=== PATIENT | female | born 1960 | race Caucasian/White ===

== ENCOUNTER 2022-01-21 14:35 | Observation (INO) ==
--- NOTE | 2022-01-21 14:47 | Emergency Department Note ---
Impression & Plan Chest pain, Shortness of breath, Pericardial effusion ED Provider Note CHIEF COMPLAINT: Chest pain HISTORY OF PRESENT ILLNESS: Verito Mcadams is a 61 year old female with history of hypothyroidism who presents to the Emergency Department for evaluation of intermittent dull, aching, left sided chest pains x 1 month which were exacerbated this morning and have been persistent since that time. She also associates intermittent radiation of pain down her left arm and into her jaw as well as shortness of breath and dyspnea which occurs when she is having the chest pain at times, but none at this time. Currently, she rates her discomfort as a 2/10 which does become worse with exertion. Most notedly, the patient's states that when they went for a hike last week, the patient had to stop several times as she was experiencing the chest pain and shortness of breath. She states that she could not keep up like she would normally be able to because of these symptoms. She also felt extremely tired afterward, which is not normal for her. The patient denies experiencing symptoms such as this in the past. She does not note any personal history of cardiac disease but states that both her mother and father have cardiac history. The patient did visit [facility] for her symptoms today, but was then referred to the ED for further evaluation. The patient does state that she has felt a bit light headed when standing up at times but denies syncope. She otherwise denies recent fevers/chills, cough, abdominal pain, nausea, vomiting, diarrhea or urinary symptoms. She is vaccinated for COVID-19. She does not smoke. REVIEW OF SYSTEMS: 10 systems were reviewed and were negative unless otherwise stated in HPI as above PHYSICAL EXAM: VITALS: Vitals are noted on the nurse's note and reviewed by myself. Hypertensive, additional vital signs stable General: Resting in bed, no acute distress HEENT: Normocephalic, PERRL, EOMI, mucous membranes moist, oropharynx clear Neck: Supple, non-tender Resp: Good inspiratory effort on room air, lung sounds clear bilaterally CV: Regular rate and rhythm, Normal S1-S2 on auscultation, no murmurs, gallops or rubs Back: No CVA tenderness Abd: Soft, non-distended, non-tender MSK: Moving all extremities without apparent pain or difficulty Integumentary: Warm, dry, no appreciable rash Neuro: Awake, alert and oriented x 3, interacting and answering questions appropriately Differential diagnosis includes cardiac ischemia, aortic dissection, pulmonary embolism, pneumothorax, pneumonia, pericarditis, myocarditis, esophageal rupture, GERD, cholecystitis, pancreatitis, musculoskeletal, as well as other pathologies. EMERGENCY DEPARTMENT COURSE: Physical exam and history were performed. Nursing triage notes, EMR, and medication list were personally reviewed. Patient appears to have intermittent dull, aching, left-sided chest pain x1 m onth which were exacerbated this morning and have been persistent since that time. She also associates intermittent radiation of pain down her left arm and into her jaw as well as shortness of breath and dyspnea which occurs when she is having the chest pain at times, but none at this time. Symptoms are worse with exertion. Additional history as described above. No significant findings on exam as above. The patient was offered medication but declined at this time. Continuous monitoring analyst: Order was placed for continuous monitoring analyst. Patient was placed on the monitoring analyst. Patient was noted to be in normal sinus rhythm at an initial rate of 73 bpm. EKG was obtained and reviewed by myself. This did show normal sinus rhythm at 73 bpm. No ectopy or concern for acute ischemic change. No previous studies for comparison. IV access was established. Labs were obtained and reviewed by myself as below. Of note, no concern for leukocytosis with a WBC of 5.87. No concern for anemia with hemoglobin 14.1. Electrolytes WNL. Renal indices stable. LFTs nondiagnostic. Lipase not elevated at 24. Troponin not elevated at <0.03. Her D-dimer was elevated at 920. Upon reevaluation, the patient was doing well. I did discuss the results of the elevated D-dimer. She did agree to undergo CT angiogram chest to assess for possible PE. CT angiogram chest was obtained and reviewed by radiologist and myself as below and reviewed by myself. Imaging was negative for PE. It did show mild bilateral bronchial wall thickening and mild associated bibasilar predominant atelectasis. Also trace pericardial effusion. I updated the patient on the additional results as above. Given her concerning history and lack of previous cardiac work-up with a heart score of 4, I do feel that she would benefit from continued monitoring and work-up for cardiac rule out. I did contact Dr. Pardo of the [facility] hospitalist group and he agreed to evaluate the patient for ongoing management. The patient verbalized her understanding and agreement with the treatment plan as above. The chart was completed utilizing [employer] Voice Recognition Software. Grammatical errors, random word insertions, pronoun errors, and incomplete sentences are an occasional consequence of this system due to software limitations, ambient noise, and hardware issues. Any formal questions or c oncerns about the content, text, or information contained within the body of this dictation should be directly addressed to the provider for clarification. Past Med/Surg History Medical History Depression Hypothyroidism Surgical History History of back surgery Family History (Updated 01/21/22 @ 18:24 by Francesco Pardo MD) Father Coronary heart disease Social History Smoking Status: Never smoker Preferred Language: Italian Feels Safe at Home: Yes Allergies Allergies Allergy/AdvReac Type Severity Reaction Status Date / Time Sulfa (Sulfonamide AdvReac Severe Gastrointestinal Verified 01/21/22 17:11 Antibiotics) Upset Home Meds Home Medications Medication Instructions Recorded Confirmed levothyroxine 75 mcg tablet 75 mcg PO DAILYBB 01/21/22 01/21/22 sertraline 100 mg tablet 100 mg PO QAM 01/21/22 01/21/22 Results & Data (ED) Vital Signs Vital Signs - 24 hr 01/21/22 14:37 01/21/22 14:53 01/21/22 16:50 Temperature 36.8 C Temperature Source Temporal Artery Scan Pulse Rate 73 Pulse Rate [Apical] 77 77 Respiratory Rate 18 17 20 Blood Pressure 152/91 H Blood Pressure [Right Arm] 171/93 H Blood Pressure Mean 111 Blood Pressure Mean [Right Arm] 119 Pulse Oximetry 95 97 97 Oxygen Delivery Method Room Air Room Air Room Air Sepsis Recent Fever Within 48 Hours No Sepsis New/Unexplained Change in Mental Status No Sepsis Action Taken by Nursing No Action Required Laboratory Data Result diagrams: 01/21/22 15:05 01/21/22 15:05 Lab Results 01/21/22 01/21/22 01/21/22 Range/Units 15:05 15:05 15:05 WBC 5.87 (4.8-10.8) K/uL RBC 4.72 (4.2-5.4) M/uL Hgb 14.1 (12.0-16.0) g/dL Hct 42.7 (37-47) % MCV 90.5 (80-100) fL MCH 29.9 (25-34) pg MCHC 33.0 (32-36) g/dL RDW Std Deviation 47.6 H (36.4-46.3) fL RDW Coeff of Sujata 14.3 (11.5-14.5) % Plt Count 259 (130-400) K/uL MPV 10.0 (7.4-10.4) fL Immature Gran % (Auto) 0.2 % Neut % (Auto) 58.6 % Lymph % (Auto) 30.8 % [place] % (Auto) 7.3 % Eos % (Auto) 2.6 % Baso % (Auto) 0.5 % Neut # (Auto) 3.44 (1.4-6.5) K/uL Lymph # (Auto) 1.81 (1.2-3.4) K/uL [place] # (Auto) 0.43 (0.11-0.59) K/uL Eos # (Auto) 0.15 (0-0.5) K/uL Baso # (Auto) 0.03 (0-0.2) K/uL Immature Gran # (Auto) 0.01 (0.00-0.02) K/uL PT 10.0 (9.0-12.0) Seconds INR 0.9 (0.9-1.1) APTT 23.7 (21.0-31.0) Seconds PTT Ratio 0.9 D-Dimer 920 H* (0-500) ug/L FEU Sodium 139 (136-145) mmol/L Potassium 4.0 (3.5-5.1) mmol/L Chloride 106 (98-107) mmol/L Carbon Dioxide 24 (21-32) mmol/L Anion Gap 9 (3-11) BUN 18 (6-23) mg/dl Creatinine 0.65 (0.6-1.2) mg/dl Est Cr Clr Drug Dosing 97.5 ml/min Est GFR ( Amer) 111.8 ml/min Est GFR (Non-Af Amer) 96.5 ml/min BUN/Creatinine Ratio 27.7 H (10-20) Glucose 102 H (70-99(Fasting)) mg/dl Calcium 9.8 (8.5-10.1) mg/dl Total Bilirubin 0.3 (0.2-1.0) mg/dl AST 16 (13-39) U/L ALT 18 (7-52) U/L Alkaline Phosphatase 82 (34-104) U/L Troponin I < 0.03 (0-0.04) ng/ml Total Protein 7.3 (6.0-8.3) gm/dl Albumin 4.3 (3.4-5.0) gm/dl Globulin 3.0 (2.5-4.0) gm/dl Albumin/Globulin Ratio 1.4 (0.9-2) Lipase 24 (11-82) U/L SARS-CoV-2, RNA, NAAT (NEGATIVE) 01/21/22 Range/Units 17:00 WBC (4.8-10.8) K/uL RBC (4.2-5.4) M/uL Hgb (12.0-16.0) g/dL Hct (37-47) % MCV (80-100) fL MCH (25-34) pg MCHC (32-36) g/dL RDW Std Deviation (36.4-46.3) fL RDW Coeff of Sujata (11.5-14.5) % Plt Count (130-400) K/uL MPV (7.4-10.4) fL Immature Gran % (Auto) % Neut % (Auto) % Lymph % (Auto) % [place] % (Auto) % Eos % (Auto) % Baso % (Auto) % Neut # (Auto) (1.4-6.5) K/uL Lymph # (Auto) (1.2-3.4) K/uL [place] # (Auto) (0.11-0.59) K/uL Eos # (Auto) (0-0.5) K/uL Baso # (Auto) (0-0.2) K/uL Immature Gran # (Auto) (0.00-0.02) K/uL PT (9.0-12.0) Seconds INR (0.9-1.1) APTT (21.0-31.0) Seconds PTT Ratio D-Dimer (0-500) ug/L FEU Sodium (136-145) mmol/L Potassium (3.5-5.1) mmol/L Chloride (98-107) mmol/L Carbon Dioxide (21-32) mmol/L Anion Gap (3-11) BUN (6-23) mg/dl Creatinine (0.6-1.2) mg/dl Est Cr Clr Drug Dosing ml/min Est GFR ( Amer) ml/min Est GFR (Non-Af Amer) ml/min BUN/Creatinine Ratio (10-20) Glucose (70-99(Fasting)) mg/dl Calcium (8.5-10.1) mg/dl Total Bilirubin (0.2-1.0) mg/dl AST (13-39) U/L ALT (7-52) U/L Alkaline Phosphatase (34-104) U/L Troponin I (0-0.04) ng/ml Total Protein (6.0-8.3) gm/dl Albumin (3.4-5.0) gm/dl Globulin (2.5-4.0) gm/dl Albumin/Globulin Ratio (0.9-2) Lipase (11-82) U/L SARS-CoV-2, RNA, NAAT NEGATIVE (NEGATIVE) Administered Medications Discontinued Medications Ioversol (Optiray 320 125ml) 121 ml IV ONCE ONE Stop: 01/21/22 16:16 Last Admin: 01/21/22 16:15 Dose: 121 ml Documented by: [id number] Imaging Data Radiologist's Impression: Chest X-Ray 01/21/22 14:47 XR chest 1V portable CLINICAL HISTORY: Atypical chest pain. Shortness of breath. COMPARISON STUDY: No previous studies for comparison. FINDINGS: Patient is mildly rotated. Lung volumes are normal. Lungs are clear. There is no pneumothorax or pleural effusion. Cardiac size is normal. Mediastinal contours are normal. There is no evidence for pulmonary edema. IMPRESSION: No acute cardiopulmonary findings. ACT 112: Negative or not required by law. Electronically signed by: Arvin An M.D. 01/21/2022 3:32 PM Chest CTA 01/21/22 15:46 CT angio chest PE protocol CT DOSE: 567.31 mGy.cm HISTORY: 61 years-old Female with PE. Acute shortness breath with left-sided chest pain TECHNIQUE: Multiple CTA images of the chest were obtained after the intravenous administration of 121 ml Optiray. Coronal and sagittal MIPS were obtained from the axial data set and were submitted for review. All measurements were obtained according to NASCET criteria. A dose lowering technique was utilized adhering to the principles of ALARA. COMPARISON: Chest radiograph of same day FINDINGS: CTA: Trace pericardial effusion. The heart is normal in size. There is no thoracic aortic aneurysm or dissection. There is patency of the imaged great vessels. Unremarkable pulmonary artery. No filling defects identified to suggest thromboembolic disease. CT CHEST: No thyroid nodule or pathologically enlarged lymph nodes. No pneumothorax, pleural effusion or overt pulmonary edema. Mild bibasilar predominant bilateral groundglass densities with bronchial wall thickening. The central airways are patent. Hepatic steatosis with suggested hepatomegaly. Unremarkable soft tissues. No acute fracture. Degenerative changes of the spine. IMPRESSION: 1. No pulmonary emboli. 2. Mild bilateral bronchial wall thickening suggestive of bronchitis or reactive airway disease. Mild associated bibasilar predominant atelectasis. 3. Trace pericardial effusion. 4. Hepatic steatosis. ACT 112: Negative or not required by law. The above report was generated using voice recognition software. It may contain grammatical, syntax or spelling errors. Electronically signed by: Ra Guido M.D. 01/21/2022 4:33 PM Discharge Plan Visit Data Chief Complaint: Chest Pain Stated Complaint: [facility] REFERRED, CHEST PAIN, SOB ED Provider: Willy Bansal ED Midlevel Provider: Aylin Harden Discharge Problem: Chest pain, Shortness of breath, Pericardial effusion Patient Disposition: Admitted As Inpatient Discharge Instructions Interventions: ED Discharge Assessment Last Done: 01/21/22 18:21
[2022-01-21 15:24] LABS: Basophils # (auto) 0.03 K/uL (0-0.2); Basophils % (auto) 0.5 %; Eosinophils # (auto) 0.15 K/uL (0-0.5); Eosinophils % (auto) 2.6 %; Hematocrit (blood only) 42.7 % (37-47); Hemoglobin 14.1 g/dL (12.0-16.0); Immature Granulocytes # (auto) 0.01 K/uL (0.00-0.02); Immature Granulocytes % (auto) 0.2 %; Lymphocytes # (auto) 1.81 K/uL (1.2-3.4); Lymphocytes % (auto) 30.8 %; Mean Corpuscular Hemoglobin 29.9 pg (25-34); Mean Corpuscular Volume 90.5 fL (80-100); Monocytes # (auto) 0.43 K/uL (0.11-0.59); Monocytes % (auto) 7.3 %; Neutrophils # (auto) 3.44 K/uL (1.4-6.5); Neutrophils % (auto) 58.6 %; Platelet Count 259 K/uL (130-400); RDW Coefficient of Variation 14.3 % (11.5-14.5); RDW Standard Deviation 47.6 fL (36.4-46.3); Red Blood Count 4.72 M/uL (4.2-5.4); White Blood Count 5.87 K/uL (4.8-10.8)
--- NOTE | 2022-01-21 15:34 | XRay Report ---
XR chest 1V portable CLINICAL HISTORY: Atypical chest pain. Shortness of breath. COMPARISON STUDY: No previous studies for comparison. FINDINGS: Patient is mildly rotated. Lung volumes are normal. Lungs are clear. There is no pneumothor ax or pleural effusion. Cardiac size is normal. Mediastinal contours are normal. There is no evidence for pulmonary edema. IMPRESSION: No acute cardiopulmonary findings. ACT 112: Negative or not required by law. Electronically signed by: Arvin An M.D. 01/21/2022 3:32 PM
[2022-01-21 15:43] LABS: INR 0.9 (0.9-1.1); Partial Thromboplastin Ratio 0.9; Partial Thromboplastin Time 23.7 Seconds (21.0-31.0)
[2022-01-21 15:44] LABS: D Dimer 920 ug/L FEU (0-500)
[2022-01-21 15:45] LABS: Troponin I < 0.03 ng/ml (0-0.04)
[2022-01-21 15:56] LABS: Alanine Aminotransferase 18 U/L (7-52); Albumin Globulin Ratio 1.4 (0.9-2); Albumin Level 4.3 gm/dl (3.4-5.0); Alkaline Phosphatase 82 U/L (34-104); Anion Gap 9 (3-11); Aspartate Aminotransferase 16 U/L (13-39); BUN Creatinine Ratio 27.7 (10-20); Bilirubin,Total 0.3 mg/dl (0.2-1.0); Blood Urea Nitrogen 18 mg/dl (6-23); Calcium 9.8 mg/dl (8.5-10.1); Carbon Dioxide 24 mmol/L (21-32); Chloride 106 mmol/L (98-107); Creatinine Clr Calc Pharmacy 97.5 ml/min; Est GFR (African American) 111.8 ml/min; Est GFR (Non-African American) 96.5 ml/min; Glucose 102 mg/dl (70-99(Fasting)); Lipase 24 U/L (11-82); Sodium 139 mmol/L (136-145); Total Protein 7.3 gm/dl (6.0-8.3)
[2022-01-21] MEDS ORDERED: OPTIRAY 320 125ml IV ONE (16:15)
--- NOTE | 2022-01-21 16:35 | CT Scan Report ---
CT angio chest PE protocol CT DOSE: 567.31 mGy.cm HISTORY: 61 years-old Female with PE. Acute shortness breath with left-sided chest pain TECHNIQUE: Multiple CTA images of the chest were obtained after the intravenous administration of 121 ml Optiray. Coronal and sagittal MIPS were obtained from the axial data set and were submitted for review. All measurements were obtained according to NASCET criteria. A dose lowering technique was u tilized adhering to the principles of ALARA. COMPARISON: Chest radiograph of same day FINDINGS: CTA: Trace pericardial effusion. The heart is normal in size. There is no thoracic aortic aneurysm or diss ection. There is patency of the imaged great vessels. Unremarkable pulmonary artery. No filling defec ts identified to suggest thromboembolic disease. CT CHEST: No thyroid nodule or pathologically enlarged lymph nodes. No pneumothorax, pleural effusion or overt pulmonary edema. Mild bibasilar predominant bilateral groundglass densities with bronchial wall thick ening. The central airways are patent. Hepatic steatosis with suggested hepatomegaly. Unremarkable soft tissues. No acute fracture. Degenera tive changes of the spine. IMPRESSION: 1. No pulmonary emboli. 2. Mild bilateral bronchial wall thickening suggestive of bronchitis or reactive airway disease. Mild associated bibasilar predominant atelectasis. 3. Trace pericardial effusion. 4. Hepatic steatosis. ACT 112: Negative or not required by law. The above report was generated using voice recognition software. It may contain grammatical, syntax o r spelling errors. Electronically signed by: Ra Guido M.D. 01/21/2022 4:33 PM
--- NOTE | 2022-01-21 17:26 | History & Physical Report ---
Date of Service January 21, 2022 Assessment & Plan (1) Chest pain: Plan: Patient sprint this probability is low based upon her negative EKG negative troponin however his symptoms sound convincing. Patient will have serial troponins and a resting echocardiogram. Patient be placed on telemetry monitoring she will be started on the baby aspirin. Lipid panel will be checked in the morning especially with her comment of steatosis seen on CT angiography (2) Depression: Plan: Patient be continued on sertraline 100 (3) Hypothyroidism: Plan: Patient appears clinically euthyroid Synthroid 75 will be continued a TSH will be added Plan: DVT preventions early ambulation Patient is a full code History of Present Illness Primary Care Provider: Freya Saleh Patient presents with a long chest discomfort has been intermittently present for 1 month but worsened on the day of presentation. She may have had some radiation in her left arm and into her jaw as well as shortness of breath. When the pain is there she feels slightly dyspneic. She noticed decreased exertional ability today when she was trying to hike and became extremely fatigued afterwards may have a positive family history of cardiac disease in her father. In the ER the patient had an EKG which was normal a troponin which was negative a chest x-ray which was unremarkable an elevated D-dimer and subsequent CT angiogram of the chest without pulmonary embolism but may be some bronchial thickening and a trace pericardial effusion. She is currently vaccinated for Covid Allergies Allergy/AdvReac Type Severity Reaction Status Date / Time Sulfa (Sulfonamide AdvReac Severe Gastrointestinal Verified 01/21/22 17:11 Antibiotics) Upset Home Medications Medication Instructions Recorded Confirmed Type levothyroxine 75 mcg tablet 75 mcg PO DAILYBB 01/21/22 01/21/22 History sertraline 100 mg tablet 100 mg PO QAM 01/21/22 01/21/22 History Past Med/Surg History Medical History (Updated 01/21/22 @ 17:22 by Francesco Pardo MD) Hypothyroidism Family History (Updated 01/21/22 @ 18:24 by Francesco Pardo MD) Father Coronary heart disease Social History Smoking Status: Never smoker Preferred Language: Faroese Feels Safe at Home: Yes Review of Systems Review of Systems: Mild distress and fatigue no headache, no visual changes no speech or swallowing issues exertional chest pain, not pressure or palpitations exertional shortness of breath, no cough or wheezes no abdominal pain, nausea or vomiting, diarrhea or constipation no dysuria, hematuria or frequency no focal joint pain or swelling, some left shoulder swelling no back pain, CVA tenderness or radicular pain no bruising, bleeding or rashes no focal signs of weakness or numbness or altered sensation no complaints of anxiety or depression.. Physical Exam Physical Exam: The patient appeared well nourished and normally developed. Vital signs as documented. Head exam is normocephalic atraumatic Neck is without JVD, thyromegaly, or carotid bruits. Lungs are clear to auscultation, no focal loss of breath sounds Cardiac exam, Rhythm is regular.. No murmurs, rubs or gallops. Abdominal exam reveals normal bowel sounds, soft non tender, no masses Extremities are nonedematous and both pedal pulses are present Neurologic exam is alert and oriented, no focal loss of strength or sensation Skin is without bruises or rashes Psychologically is without concerns for anxiety or depression.. Results & Data Results & Data ([facility]) Vital Signs (Past 12 Hours) Vital Signs Temp Pulse Pulse Resp BP BP Pulse Ox 01/21/22 16:50 77 20 97 01/21/22 14:53 77 17 171/93 H 97 01/21/22 14:37 98.2 F 73 18 152/91 H 95 Diagnostic Findings Chest X-Ray 01/21/22 14:47 XR chest 1V portable FINDINGS: Patient is mildly rotated. Lung volumes are normal. Lungs are clear. There is no pneumothorax or pleural effusion. Cardiac size is normal. Mediastinal contours are normal. There is no evidence for pulmonary edema. IMPRESSION: No acute cardiopulmonary findings. Chest CTA 01/21/22 15:46 CT angio chest PE protocol CTA: Trace pericardial effusion. The heart is normal in size. There is no thoracic a ortic aneurysm or dissection. There is patency of the imaged great vessels. Unremarkable pulmonary artery. No filling defects identified to suggest thromboembolic disease. CT CHEST: No thyroid nodule or pathologically enlarged lymph nodes. No pneumothorax, pleural effusion or overt pulmonary edema. Mild bibasilar predominant bilateral groundglass densities with bronchial wall thickening. The central airways are patent. Hepatic steatosis with suggested hepatomegaly. Unremarkable soft tissues. No acute fracture. Degenerative changes of the spine. IMPRESSION: 1. No pulmonary emboli. 2. Mild bilateral bronchial wall thickening suggestive of bronchitis or reactive airway disease. Mild associated bibasilar predominant atelectasis. 3. Trace pericardial effusion. 4. Hepatic steatosis. Troponin negative in the ER ECG Additional Comments: EKG shows normal sinus rhythm without any acute ST or T wave abnormalities PG Care Time/CCT Total # of Minutes Spent Total Time Spent with Patient: Total time spent is greater than 50% in coordination of care (as documented) at patient's floor/unit and/or counseling patient: Coding Level of Care Code INT OBSERVATION CARE 50M LVL 2 Diagnoses Depression F32.A Hypothyroidism E03.9 Chest pain R07.9
[2022-01-21] MEDS ORDERED: ALUMINUM/MAGNESIUM SUSP 30 ML UDC PO PRN (18:38)
[2022-01-21] MEDS ORDERED: NITROGLYCERIN SL 0.4 MG/TAB TAB SL PRN (18:38)
[2022-01-21] MEDS ORDERED: ONDANSETRON INJ 2 MG/ML 2 ML VIAL IV PRN (18:38)
[2022-01-21] MEDS ORDERED: MoRPHine SULFATE 2 MG/ML CARP IV PRN (18:38)
[2022-01-21] MEDS ORDERED: FLUARIX QUADRIVALENT 0.5 ML SYR IM ONE (23:17)
[2022-01-22] MEDS: ACETAMINOPHEN 325 MG TAB PO PRN ×3 (01:06→13:27)
[2022-01-22 05:53] LABS: Hematocrit (blood only) 40.6 % (37-47); Hemoglobin 13.6 g/dL (12.0-16.0); Mean Corpuscular Hemoglobin 30.1 pg (25-34); Mean Corpuscular Hgb Conc 33.5 g/dL (32-36); Mean Corpuscular Volume 89.8 fL (80-100); Platelet Count 254 K/uL (130-400); RDW Coefficient of Variation 14.5 % (11.5-14.5); RDW Standard Deviation 47.6 fL (36.4-46.3); Red Blood Count 4.52 M/uL (4.2-5.4); White Blood Count 5.38 K/uL (4.8-10.8)
[2022-01-22 06:10] LABS: BUN Creatinine Ratio 23.6 (10-20); Chol HDL Ratio 3.4 (0-5); Creatinine Clr Calc Pharmacy 87.8 ml/min; Est GFR (African American) 105.5 ml/min; Magnesium 2.2 mg/dl (1.7-2.4); Potassium 4.1 mmol/L (3.5-5.1)
[2022-01-22] MEDS ORDERED: LEVOTHYROXINE SODIUM 75 MCG TABLET PO SCH (06:30)
--- NOTE | 2022-01-22 07:22 | Communication Note ---
Date of Service: January 22, 2022 12:10am. chest pain radiating down left arm. resolved w/ nitro. ecg w/o ischemic changes. ordered 5am trop. wnl. Per admission team, echo in AM. Per admission HPI, ecg and trop reassuring, but consider cardiac etiology because of description of symptoms. consider cardiology consult Mauricio Euceda, PGY2 night resident
[2022-01-22] MEDS ORDERED: ASPIRIN 81 MG ECTAB PO SCH (09:00)
[2022-01-22] MEDS ORDERED: SERTRALINE HCL 100 MG TABLET PO SCH (09:00)
--- NOTE | 2022-01-22 10:07 | Electrocardiogram Report ---
Test Reason : Blood Pressure : / mmHG Vent. Rate : 069 BPM Atrial Rate : 069 BPM P-R Int : 178 ms QRS Dur : 080 ms QT Int : 382 ms P-R-T Axes : 025 028 051 degrees QTc Int : 409 ms Normal sinus rhythm Normal ECG When compared with ECG of 21-JAN-2022 14:45, Criteria for Septal infarct are no longer Present Confirmed by Adolfo Marks ([id number]) on 01/22/2022 10:07:29 AM Referred By: REFERRED SELF Confirmed By:Adolfo aMrks
[2022-01-22 10:16] LABS: Lyme Ab IgG w/WB Rflx Negative (Negative); Lyme Ab IgM w/WB Rflx Negative (Negative)
--- NOTE | 2022-01-22 10:26 | Electrocardiogram Report ---
Test Reason : Blood Pressure : / mmHG Vent. Rate : 075 BPM Atrial Rate : 075 BPM P-R Int : 166 ms QRS Dur : 080 ms QT Int : 386 ms P-R-T Axes : 029 039 050 degrees QTc Int : 431 ms Normal sinus rhythm Normal ECG When compared with ECG of 22-JAN-2022 00:25, (unconfirmed) No significant change was found Confirmed by Adolfo Marks ([id number]) on 01/22/2022 10:25:47 AM Referred By: REFERRED SELF Confirmed By:Adolfo Marks
[2022-01-22] MEDS ORDERED: ALBUTEROL HFA 8 GM INHALER INH PRN (12:02)
--- NOTE | 2022-01-22 12:05 | Discharge Summary ---
Date of Service January 22, 2022 Admission HPI Per Admitting Provider Patient presents with a long chest discomfort has been intermittently present for 1 month but worsened on the day of presentation. She may have had some radiation in her left arm and into her jaw as well as shortness of breath. When the pain is there she feels slightly dyspneic. She noticed decreased exertional ability today when she was trying to hike and became extremely fatigued afterwards may have a positive family history of cardiac disease in her father. In the ER the patient had an EKG which was normal a troponin which was negative a chest x-ray which was unremarkable an elevated D-dimer and subsequent CT angiogram of the chest without pulmonary embolism but may be some bronchial thickening and a trace pericardial effusion. She is currently vaccinated for Covid Principal Diagnosis Chest pain, noncardiac suspected Discharge Exam General: A&Ox3. NAD. Cooperative. HEENT: Atraumatic, normocephalic. Vision and hearing grossly intact Pulm: CTAB A&P. -wheezes, -rales, -rhonchi. Symmetrical chest rise. No increase in work of breathing. No respiratory distress. Cardiac: RRR, -mrg. Radial pulses intact and symmetrical. Abdominal: Nontender, nondistended, soft. BS present. Extremities: Warm, dry. Moves all extremities equally, sensation of soft touch intact in hands and feet without deficit. Discharge Data Allergies Allergy/AdvReac Type Severity Reaction Status Date / Time Sulfa (Sulfonamide AdvReac Severe Gastrointestinal Verified 01/21/22 17:11 Antibiotics) Upset Ordered Studies 01/21/22 15:46 CT angio chest PE protocol Stat Hospital Course (1) Chest pain: Verito is a 61-year-old female who was admitted for concern of chest pain for 1 month, worsened in 1 week with exertional dyspnea. To do as outpatient: 1. Follow-up with PCP. Patient with negative cardiac serology and normal echo as below, but strong family history of NC with concerning story. May benefit from outpatient stress test 2.? Reactive airway disease on evaluation below. Follow-up for PFTs as outpatient Chest pain Does report 1 month of chest pain with intermittent symptoms, sometimes in the evening, which seem to be a little bit worse with exertion. Does have a pain in her chest and low rib which is sometimes spread to the shoulder. She notes her ribs on the left side of her chest and parasternal area is tender to palpation bilaterally. She noticed decreased exercise exertion while doing a 2 mile hike last week and had some increased shortness of breath and dyspnea which limited her. Does have a family history of NC in her father at age 45, and mother in her 70s She is a non-smoker, without history of diabetes or hypertension BRIT score of 0 low risk Troponins on admission and serial troponin after an episode of chest pain overnight remained undetectable/negative. EKG on admission and with an episode of chest pain did not show any evidence of ischemic changes including ST segment changes or T wave inversions TTE: EF 60-65%, normal LV wall motion, normal LA pressures, RV normal in size and function, normal RV SP, trivial pericardial effusion Patient did have some liquid diarrhea during admission. Stool PCR negative for pathogens including e coli, c diff, shigella. TSH was normal, Lyme test was negative during admission D-dimer was elevated. CTA: No pulmonary emboli, mild bronchial wall thickening suggestive of bronchitis/reactive airway disease, trace pericardial effusion Given tenderness on palpation, and presence of symptoms for more than 1 week and observe symptoms overnight with 2 sets of serial troponins being negative and without EKG changes and a normal echo was highly likely that her chest pain is noncardiac. Given CTA above? Reactive airway versus bronchitis contributing to symptoms. Symptoms did improve with albuterol inhaler. Despite this she has a strong cardiac sounding story, with a family history of early heart disease and could benefit from a stress test. This was discussed with the patient who prefers to follow-up with her provider who is in [place]. process coordinator consulted for assistance in referral, and calls to help facilitate this once offices are open on Monday. Return precautions were discussed with patient who is agreeable to this. (2) Depression: Patient be continued on sertraline 100 (3) Hypothyroidism: Patient appears clinically euthyroid Synthroid 75 will be continued a TSH will be added DVT preventions early ambulation Patient is a full code Total Time Total Time Spent Total Time Spent (In Minutes): Time spend day of discharge 90 minutes including direct patient care, documentation, review of labs and images, and coordination of care. Discharge Plan Discharge Items Patient Disposition: Home - Self-Care Reason For Visit: CHEST PAIN Discharge Diagnosis: Chest Pain, Suspect Noncardiac. Reactive Airway Disease Activity: Per Instructions section Non-emergency contact: Primary Care Provider Call non-emergency contact if: you have any medication questions, your symptoms worsen, your pain is not controlled, your pain is worsening, your pain is unusual for you, your pain is concerning for you and you have a fever Follow-up/Referrals: [facility] [Other] Diet: Regular Addtl Attending Provider Instructions: You were seen in the hospital for chest pain. Your heart markers (troponin levels) were normal and did not show any evidence of heart damage. An ultrasound of your heart (echocardiogram) did not show any evidence of heart injury. Your heart was pumping normally with no abnormalities, and normal heart valve appearance. You had an elevated D-Dimer which can suggest blood clots in the body, a followup CT scan did NOT show any evidence of blood clots (pulmonary embolism). You had a trace pericardial effusion which did not require intervention. There was evidence of bronchitis vs reactive airway disease for w hich you have been previously prescibed an albuterol inhaler. You did NOT show any evidence of heart ischemia/heart attack on repeat EKGs. It is likely that your chest pain is noncardiac, and possible due to reactive airways/asthma in the lungs. You have been continued on an albuterol inhaler. Please followup with your PCP for additional care. You do have a strong family history of heart attack, it would be reasonable to pursue a cardiac stress test as an outpatient. You should have PFTs (pulmonary function tests) ordered by your primary care provider at followup. If you develop any new or worsening symptoms including fever, chills, sweats, chest pain, chest pressure, difficulty breathing, uncontrolled nausea/vomiting, rash, wheezing, passing out or nearly passing out, bleeding, black/bloody bowel movements, or other new or concerning symptoms please call your primary care physician, or call 911 for re-evaluation in the emergency department if you are very concerned. Pending Studies at Discharge: No Stand-Alone Forms: My [employer], Smoking Cessation Medications and DC Order Prescriptions: New albuterol sulfate [Ventolin HFA] 90 mcg/actuation Hfa Aerosol Inhaler 2 puff inhalation Q6H PRN (Reason: wheezing/shortness of breath) Qty: 6.7 RF: 0 Continued levothyroxine 75 mcg tablet 75 mcg PO DAILYBB RF: 0 sertraline 100 mg tablet 100 mg PO QAM RF: 0 Discharge Orders: Discharge Order (Routine); Ordered 01/22/22 Ordered By: Hakeem Gallagher Admission Data Admit Date/Time: 01/21/22 17:37 Attending Provider: Hakeem Gallagher Admit Provider: Francesco Pardo Coding Level of Care Code 54400 OBS Care - Discharge Diagnoses Chest pain R07.9 Depression F32.A Hypothyroidism E03.9
[2022-01-22 13:25] LABS: Adenovirus F 40/41 PCR Not Detected (NotDetected); Astrovirus PCR Not Detected (NotDetected); Campylobacter PCR Not Detected (NotDetected); Clostridium diff Toxin A/B PCR Not Detected (NotDetected); Cryptosporidium PCR Not Detected (NotDetected); Cyclospora cayetanensis PCR Not Detected (NotDetected); Entamoeba histolytica PCR Not Detected (NotDetected); Enteroaggregative E.coli(EAEC) Not Detected (NotDetected); Enteropathogenic E.coli (EPEC) Not Detected (NotDetected); Enterotoxigenic E.coli (ETEC) Not Detected (NotDetected); Giardia lamblia PCR Not Detected (NotDetected); Norovirus GI/GII PCR Not Detected (NotDetected); Plesiomonas shigelloides PCR Not Detected (NotDetected); Rotavirus A PCR Not Detected (NotDetected); Salmonella PCR Not Detected (NotDetected); Sapovirus PCR Not Detected (NotDetected); Shiga-like Toxin E.coli (STEC) Not Detected (NotDetected); Shigella/Enteroinvasive E.coli Not Detected (NotDetected); Vibrio cholerae PCR Not Detected (NotDetected); Vibrio species PCR Not Detected (NotDetected); Yersinia enterocolitica PCR Not Detected (NotDetected)
[2022-01-22] MEDS ORDERED: LOPERAMIDE HCL 2 MG CAP PO STA (13:54)
== END 2022-01-22 14:48 | disposition home or self-care (01) ==
LOC: ED 14:35 → 2W 14:35
DX: R07.9 Chest pain, unspecified; E03.9 Hypothyroidism, unspecified; I31.3 Pericardial effusion (noninflammatory); Z88.2 Allergy status to sulfonamides; F32.A Depression, unspecified